=== PATIENT | male | born 1965 | race Asian ===

== ENCOUNTER 2017-08-14 09:13 | Inpatient (IN) | payer BC, OTHER ==
[2017-08-14] MEDS ORDERED: Nitroglycerin 0.4 MG TAB (25 Tab Bottle) ONE (09:43)
[2017-08-14] MEDS ORDERED: Lidocaine 1% (PF) 30 ML VIAL ONE (09:49)
[2017-08-14 09:50] LABS: #Basophils 0.1 thou/uL (0.0-0.2); #Eosinphils 0.1 thou/uL (0.0-0.7); #Lymphocytes 2.5 thou/uL (1.20-3.40); #Monocytes 1.2 thou/uL (0.11-0.59); #Neutrophils 6.9 thou/uL (1.40-6.50); %Basophils 0.8 % (0.0-1.0); %Lymphocytes 23.3 % (21.0-51.0); %Monocytes 11.3 % (0.0-10.0); %Neutrophils 63.6 % (42.0-75.0); Hemoglobin 14.5 g/dL (14.0-18.0); Mean Corpuscular Hemoglobin 28.5 pg (27.0-31.0); Mean Corpuscular Volume 86.2 fL (78.0-98.0); Mean Platelet Volume 7.5 fL (7.4-10.4); Platelet Count 324 thou/uL (130-400); RBC Distribution Width 13.7 % (11.5-14.5); White Blood Cell (WBC) Count 10.9 thou/uL (4.8-10.8)
[2017-08-14] MEDS ORDERED: Heparin 5,000 UNITS/ML VIAL ONE (09:50)
[2017-08-14] MEDS ORDERED: Midazolam HCl 2 mg/2 ml Vial ONE (10:03)
--- NOTE | 2017-08-14 10:07 | RAD ---
PORTABLE CHEST 1 VIEW: Date: 08/14/17 Time: 0947 hours HISTORY: Chest pain. FINDINGS/IMPRESSION: The heart size is borderline. No focal areas of consolidation, pneumothorax, vikki pulmonary edema, o r pleural effusions are seen. POS: [facility]
[2017-08-14 10:09] LABS: CKMB 1.1 ng/mL (0-6.6); Troponin I Less than 0.010 ng/mL (< 0.028)
[2017-08-14 10:12] LABS: ALT (SGPT) 30 U/L (8-55); AST (SGOT) 25 U/L (5-34); Albumin 3.9 g/dL (3.5-5.0); Alkaline Phosphatase 123 U/L (40-150); Anion Gap 14 mmol/L (10-20); BUN (Urea Nitrogen) 11 mg/dL (8.4-25.7); Bilirubin, Total 0.6 mg/dL (0.2-1.2); Calc. Creatinine Clearance 0 mL/min (70-130); Calcium 9.8 mg/dL (7.8-10.44); Carbon Dioxide 27 mmol/L (22-29); Chloride 102 mmol/L (98-107); Estimated GFR-MDRD Greater than 90; Globulin 4.2 g/dL (2.4-3.5); Glucose 181 mg/dL (70-105); Potassium 3.6 mmol/L (3.5-5.1); Protein, Total 8.1 g/dL (6.0-8.3); Sodium 139 mmol/L (136-145)
[2017-08-14] MEDS ORDERED: Heparin 10,000 UNITS/1 ML VIAL ONE (10:16)
[2017-08-14] MEDS ORDERED: Nitroglycerin 100MG/250ML BOT 250 ML ONE (10:18)
[2017-08-14 10:23] LABS: CK (CPK) 45 U/L (30-200)
[2017-08-14] MEDS ORDERED: Fentanyl 100 MCG/2 ML VIAL ONE (10:50)
[2017-08-14 10:57] LABS: Prothrombin Time 13.1 SEC (12.0-14.7)
[2017-08-14 10:58] LABS: PTT 28.6 SEC (22.9-36.1)
[2017-08-14] MEDS ORDERED: Aggrastat 12.5 MG/250 ML 250 ML ONE (11:12)
[2017-08-14] MEDS ORDERED: Sodium Chloride 0.9% 1,000 ML IV SCH (12:07)
[2017-08-14] MEDS ORDERED: Aggrastat 12.5 MG/250 ML 12.5 MG in Premix Bag 1 BAG IVPB SCH (12:07)
[2017-08-14] MEDS ORDERED: TICAGRELOR 90 MG TABLET PO SCH (12:15)
[2017-08-14] MEDS ORDERED: Iopamidol 370 76% 50 ML VIAL FS ONE (12:16)
[2017-08-14] MEDS ORDERED: Iopamidol 370 76% 100 ML VIAL ONE (12:16)
[2017-08-14] MEDS ORDERED: Milk Of Magnesia 30 ML UDCUP PO PRN (12:53)
[2017-08-14] MEDS ORDERED: Mag-Al 1200 mg/1200 mg/30 ML UDCUP PO PRN (12:53)
[2017-08-14] MEDS ORDERED: Ondansetron HCl/PF 4 MG/2 ML Vial IVP PRN (12:53)
[2017-08-14] MEDS ORDERED: Dextrose 5% in Water 1,000 ML IV PRN (12:53)
[2017-08-14] MEDS ORDERED: Dextrose 50% Abboject 50 ML SYRINGE SLOW IVP PRN (12:53)
[2017-08-14] MEDS ORDERED: Loperamide HCl 2 MG CAP PO PRN (12:53)
[2017-08-14] MEDS ORDERED: Zolpidem Tartrate 5 MG TAB PO PRN (12:53)
[2017-08-14] MEDS ORDERED: Ondansetron ODT 4 MG TAB PO PRN (12:53)
[2017-08-14] MEDS ORDERED: Senokot 8.6 MG TAB PO PRN (12:53)
[2017-08-14] MEDS ORDERED: Acetaminophen 325 MG TAB PO PRN (12:53)
[2017-08-14] MEDS ORDERED: HYDROcodone/Acetaminophen 5/325 mg Tablet PO PRN (12:53)
--- NOTE | 2017-08-14 14:18 | CON ---
DATE OF CONSULTATION: 08/14/2017 PRIMARY CARE PHYSICIAN: [facility] call admission. PRIMARY ATTENDING: Dr. Paz. REASON FOR ADMISSION: STEMI. REASON FOR CONSULT: Medical comanagement. HISTORY OF PRESENT ILLNESS: A 51-year-old [place] male who has underlying history of diabetes type 2, obesity, tobacco chewing, hypertension and dyslipidemia, who came to emergency room with complaint of chest pain. Patient reports that this morning when he woke up, at that time he was feeling normal. 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 At that time, he started feeling weakness in his arm and he was feeling funny with uncomfortable sensation in his chest. Around 7:30 a.m., he was feeling diaphoresis and he got his entire body weak and immediately after that his chest pain started, which was left-sided in nature, radiating to back, associated with diaphoresis, without any nausea or vomiting. He denies any dizziness, palpitation or syncope. The patient initially felt that his blood sugar may be low and that is why he ate chocolate and orange juice that did not improve his symptoms. He had persistent pain. He has to stop working and he took baby aspirin and subsequently he decided to drove to ER. Whenever he was walking towards the ER , he was having increasing chest pain. In the emergency room, he had first EKG which was suspicious, but second EKG showing ST elevation and that is why STEMI alert was done and patient was taken to cardiac catheterization. Cardiac catheterization showed diffuse LAD occlusion and patient had a drug- eluting stent in proximal LAD as well as mid LAD. He had 3-vessel disease. He was also found with 80% stenosis in LCX and 90% stenosis in the RCA. After successful 14 drug-eluting stents in the proximal and mid LAD, patient was transferred to CCU and he was getting Aggrastat drip. Patient's pain subsided in the emergency room with nitroglycerin sublingual. His EF found to be 25% after cardiac catheterization. Initially routine blood tests including CBC, CMP and cardiac enzymes were negative. In CCU, he still has seat in place. He is chest pain free and his vitals are stable. REVIEW OF SYSTEMS: The following complete review of systems was negative, unless otherwise mentioned in the HPI or below: Constitutional: Weight loss or gain, ability to conduct usual activities. Skin: Rash, itching. Eyes: Double vision, pain. ENT/Mouth: Nose bleeding, neck stiffness, pain, tenderness. Cardiovascular: Palpitations, dyspnea on exertion, orthopnea. Respiratory: Shortness of breath, wheezing, cough, hemoptysis, fever or night sweats. Gastrointestinal: Poor appetite, abdominal pain, heartburn, nausea, vomiting, constipation, or diarrhea. Genitourinary: Urgency, frequency, dysuria, nocturia. Musculoskeletal: Pain, swelling. Neurologic/Psychiatric: Anxiety, depression. Allergy/Immunologic: Skin rash, bleeding tendency. Please see my HPI for pertinent positive and negative. All other review of systems reviewed and negative except as mentioned in the HPI. PAST MEDICAL HISTORY: Diabetes type 2, poorly controlled on insulin; hypertension on lisinopril; dyslipidemia on lovastatin; and morbid obesity. PAST SURGICAL HISTORY: Reviewed and negative. Status post cardiac catheterization today with stent placement. PAST PSYCHIATRIC HISTORY: Reviewed and negative. SOCIAL HISTORY: Patient is working in convenience store. He is . He lives at home with his family. He chews tobacco. He denies any alcohol abuse. He denies any smoking. FAMILY HISTORY: Significantly positive for coronary artery disease to his brother who had CAD as well as CABG and cardiomyopathy. His brother also has diabetes. EMERGENCY ROOM COURSE: Patient has received heparin 3000 units, aspirin 162 mg , IV fluid, nitroglycerin 0.4 mg sublingual. ALLERGIES: No known drug allergy. CURRENT HOME MEDICATIONS: Aspirin 81 mg p.o. daily, lovastatin 20 mg p.o. at bedtime, Amaryl 4 mg twice daily, Lantus 60 units subcutaneously daily, lisinopril 5 mg p.o. daily, metoprolol 25 mg twice daily. Terazosin daily PHYSICAL EXAMINATION: VITAL SIGNS: On arrival, blood pressure 137/93, pulse 96, respiratory rate 22, temperature 97.5, saturation 100% on room air, weight 89.1 kilograms. GENERAL: Patient is currently alert, awake, no obvious acute distress. HEAD: Normocephalic, atraumatic. EYES: Pupils round, reactive to light. Extraocular muscle intact. ENT: Oropharynx within normal limits. Moist mucous membranes, no oral lesion, no pharyngeal erythema, no exudate. NECK: Supple, no JVD, no thyromegaly, no carotid bruit. LUNGS: Clear to auscultation without any rhonchi or rales. CARDIAC: S1 and S2 regular. No murmur, no gallop, no rub. ABDOMEN: Soft, obesity present. Bowel sounds present, nontender, nondistended. No organomegaly, no mass, no suprapubic tenderness. BACK: Examination unremarkable, no CVA tenderness. EXTREMITIES: Upper extremity passive movement of all joints are normal. Lower extremities, no edema. Good peripheral pulsation, no calf tenderness. SKIN: No skin rash. HEMATOLOGICAL SYSTEM: No lymphadenopathy. PSYCHIATRIC: Normal affect. NEUROLOGIC: Nonfocal examination. IMAGING DATA AND SIGNIFICANT LABORATORY DATA: EKG showing acute anterior wall myocardial infarction. Chest x-ray based on my review, no acute cardiopulmonary process. CBC: WBC 10.9, hemoglobin 14.5, platelet 324. INR 1.0. BMP; sodium 139, potassium 3.6, chloride 102, carbon dioxide 27, anion gap 14, BUN 11, creatinine 0.84, glucose 181, calcium 9.8. LFT: AST 25, ALT 30 , alkaline phosphatase is 123, albumin 3.9, CK-MB 1.1, troponin I less than 0.010, CK 45. ASSESSMENT AND PLAN/IMPRESSION: 1. Acute anterior wall myocardial infarction, status post cardiac catheterization with successful stenting with drug-eluting stent in proximal LAD as well as mid LAD. 2. Three-vessel coronary artery disease. Patient has diffuse LAD disease as well as 80% stenosis in left circumflex as well as proximal RCA 90% stenosis. Patient will require future stenting versus cardiac bypass grafting managed by Cardiology. 3. Ischemic cardiomyopathy with EF of 25%. We will need a repeat echocardiography before discharge. Expecting improvement in EF after revascularization. If EF does not improve, then he will need LifeVest therapy. Patient is already started on Coreg 3.125 mg twice daily, lisinopril 2.5 mg p.o. daily and we will continue to modify and the titrate medication. 4. Hypertension. As mentioned above, patient is on Coreg and lisinopril. 5. Dyslipidemia. We will check lipid profile tomorrow and continue Lipitor 40 mg p.o. at bedtime. 6. Morbid obesity. Dietary education given, weight loss education given. Healthy lifestyle measures discussed with the patient. 7. Tobacco chewing. Counseling given to avoid tobacco products. 8. Drug-eluting stent placed after cardiac catheterization. Patient will continue aspirin and Brilinta. Currently, patient is on Aggrastat after procedure. 9. Deep venous thrombosis prophylaxis. The patient is on Aggrastat drip right now and patient is started on Brilinta therapy. 10. Gastrointestinal prophylaxis, Pepcid 20 mg p.o. b.i.d. 11. Code status: The patient is FULL CODE. The patient's is surrogate decision maker. 12. BPH. continue terazosin Disposition plan based on clinical course. We are expecting patient's stay in hospital more than 2 midnights. Plan of care discussed with the patient as well as other family member. HAYLEY
--- NOTE | 2017-08-14 15:41 | HP ---
DATE OF ADMISSION: 08/14/2017 REASON FOR ADMISSION: Acute myocardial infarction. HISTORY OF PRESENT ILLNESS: Mr. Stockton is a 51-year-old gentleman. He started having chest pain at abo ut 7:30 this morning at [facility], called his [id number] who is a Hospitalist here and h e recommended he come to the hospital where he was found to have an acute myocardial infarction. The patient's pain actually resolved while he is in the emergency room after some nitrates, but the ST s egments remained elevated. PAST HISTORY: Type 2 diabetes, insulin-dependent. MEDICATION: Lantus insulin, he was given aspirin here. REVIEW OF SYSTEMS: Constitutional: No significant weight gain or loss. Vision: No changes. Heari ng: No changes. Pulmonary: No cough or wheezing. Gastrointestinal: No nausea, vomiting, diarrhea . Skin: No rashes. Neurologic: No unilateral weakness or numbness. Psychiatric: No unusual depr ession or anxiety. Hematologic: No unusual bruising. Genitourinary: No burning with urination. SOCIAL HISTORY: Chews tobacco. Does not smoke. FAMILY HISTORY: Unknown at this time, the patient was having acute CO, was taken directly to the [facility] catheterization lab. PHYSICAL EXAMINATION: GENERAL: This is a pleasant gentleman, somewhat apprehensive but not in any distress. VITAL SIGNS: Blood pressure was 120/70, pulse in the 70-80 range, sinus on the monitor. HEENT: Sclerae nonicteric. Mouth, mucous membranes moist. NECK: Supple, no lymphadenopathy. LUNGS: Clear, no wheezing, rales or rhonchi. CARDIAC: Normal S1, normal S2. There is no murmur, rub or gallop. ABDOMEN: Soft, nontender, no hepatomegaly. EXTREMITIES: Warm, dry, no clubbing, cyanosis or edema. Pedal pulse on the right side was strong. LABORATORY DATA: Hemoglobin is 14.5, WBC 10.9, INR is 1. ACT after a dose of heparin in the emergen cy room was 168. The EKG did reveal ST elevation in the anterior leads. ASSESSMENT: 1. Acute myocardial infarction. 2. Diabetes mellitus type 2, insulin-dependent. PLAN: Proceed to cardiac catheterization lab. Discussed risks of stroke, heart attack, iodine aller gy, loss of blood supply to the leg or kidney, stent thrombosis, stent restenosis all discussed. The patient understood and wished to proceed. This was done successfully as is outlined in the chart. The patient was found to have severe 3-vessel coronary disease. The infarct related vessel of a prox imal LAD with a long diseased segment.
[2017-08-14 15:55] LABS: #Basophils 0.1 thou/uL (0.0-0.2); #Eosinphils 0.1 thou/uL (0.0-0.7); #Lymphocytes 2.1 thou/uL (1.20-3.40); #Monocytes 0.8 thou/uL (0.11-0.59); %Basophils 0.7 % (0.0-1.0); %Eosinophils 0.5 % (0.0-10.0); %Lymphocytes 20.8 % (21.0-51.0); %Monocytes 8.1 % (0.0-10.0); Hemoglobin 12.9 g/dL (14.0-18.0); Mean Corpuscular HGB CONC 33.9 g/dL (32.0-36.0); Mean Corpuscular Hemoglobin 28.8 pg (27.0-31.0); Mean Platelet Volume 7.4 fL (7.4-10.4); Platelet Count 295 thou/uL (130-400); RBC Distribution Width 13.6 % (11.5-14.5); Red Blood Cell (RBC) Count 4.48 mill/uL (4.70-6.10)
[2017-08-14 16:41] LABS: CKMB 275.8 ng/mL (0-6.6); Troponin I 169.638 ng/mL (< 0.028)
[2017-08-14] MEDS: HumaLOG 300 UNITS/3 ML VIAL SC PRN (18:23)
[2017-08-14 19:13] LABS: CKMB 185.1 ng/mL (0-6.6); Critical Call CKMBM RESULT DECREASING; Critical Call Chem Troponin I RESULT DECREASING; Troponin I 130.665 ng/mL (< 0.028)
[2017-08-14] MEDS: TICAGRELOR 90 MG TABLET PO SCH (20:48)
[2017-08-14] MEDS: Famotidine 20 MG TAB PO SCH (20:48)
[2017-08-14] MEDS: Atorvastatin Calcium 40 MG TAB PO SCH (20:48)
[2017-08-14] MEDS: Insulin Regular 300 UNITS/3 ML VIAL SC PRN (20:58)
[2017-08-14] MEDS ORDERED: Carvedilol 3.125 MG TAB PO SCH (21:00)
[2017-08-14] MEDS ORDERED: Lisinopril 2.5 MG TAB PO SCH (21:00)
[2017-08-14] MEDS ORDERED: Carvedilol 6.25 MG TAB PO SCH (21:00)
[2017-08-14 23:14] LABS: #Basophils 0.1 thou/uL (0.0-0.2); #Eosinphils 0.2 thou/uL (0.0-0.7); #Lymphocytes 2.5 thou/uL (1.20-3.40); #Monocytes 0.9 thou/uL (0.11-0.59); #Neutrophils 7.2 thou/uL (1.40-6.50); %Basophils 0.6 % (0.0-1.0); %Eosinophils 1.8 % (0.0-10.0); %Monocytes 8.6 % (0.0-10.0); Mean Corpuscular HGB CONC 33.3 g/dL (32.0-36.0); Mean Corpuscular Hemoglobin 28.4 pg (27.0-31.0); Mean Corpuscular Volume 85.3 fL (78.0-98.0); Mean Platelet Volume 7.3 fL (7.4-10.4); Platelet Count 311 thou/uL (130-400); RBC Distribution Width 13.7 % (11.5-14.5); Red Blood Cell (RBC) Count 4.92 mill/uL (4.70-6.10); White Blood Cell (WBC) Count 10.9 thou/uL (4.8-10.8)
[2017-08-14 23:59] LABS: Troponin I 77.113 ng/mL (< 0.028)
[2017-08-15 05:18] LABS: #Eosinphils 0.2 thou/uL (0.0-0.7); #Lymphocytes 1.8 thou/uL (1.20-3.40); #Monocytes 0.9 thou/uL (0.11-0.59); #Neutrophils 7.3 thou/uL (1.40-6.50); %Basophils 0.5 % (0.0-1.0); %Eosinophils 1.7 % (0.0-10.0); %Lymphocytes 17.8 % (21.0-51.0); %Monocytes 8.8 % (0.0-10.0); %Neutrophils 71.3 % (42.0-75.0); Hemoglobin 13.8 g/dL (14.0-18.0); Mean Corpuscular HGB CONC 32.6 g/dL (32.0-36.0); Mean Corpuscular Hemoglobin 28.3 pg (27.0-31.0); Mean Corpuscular Volume 86.6 fL (78.0-98.0); Mean Platelet Volume 7.9 fL (7.4-10.4); Platelet Count 280 thou/uL (130-400); RBC Distribution Width 13.7 % (11.5-14.5); Red Blood Cell (RBC) Count 4.89 mill/uL (4.70-6.10); White Blood Cell (WBC) Count 10.2 thou/uL (4.8-10.8)
[2017-08-15] MEDS: HumaLOG 300 UNITS/3 ML VIAL SC PRN (06:12)
[2017-08-15 06:21] LABS: ALT (SGPT) 51 U/L (8-55); AST (SGOT) 192 U/L (5-34); Albumin 3.5 g/dL (3.5-5.0); Alkaline Phosphatase 90 U/L (40-150); Anion Gap 12 mmol/L (10-20); BUN (Urea Nitrogen) 8 mg/dL (8.4-25.7); Bilirubin, Total 1.1 mg/dL (0.2-1.2); Calc. Creatinine Clearance 0 mL/min (70-130); Calcium 9.2 mg/dL (7.8-10.44); Carbon Dioxide 22 mmol/L (22-29); Cardiac Risk 4.7 (Less than 4.5); Chloride 105 mmol/L (98-107); Cholesterol 196 mg/dl (< 200 Desired); Estimated GFR-MDRD Greater than 90; Globulin 3.5 g/dL (2.4-3.5); Glucose 246 mg/dL (70-105); HDL Cholesterol 42 mg/dL (>60 Neg Risk); LDL Cholesterol, Calculated 121 mg/dL; Sodium 135 mmol/L (136-145); Triglycerides 165 mg/dL (Less than 150)
[2017-08-15 06:43] LABS: Hemoglobin A1c 12.9 % (4.0-6.0)
--- NOTE | 2017-08-15 08:04 | PRG ---
DATE OF SERVICE: 08/15/2017 HISTORY: Mr. Stockton is doing better today. He has no chest pain or pressure. He is tolerating the Cor eg well. PHYSICAL EXAMINATION: VITAL SIGNS: Blood pressure 130 systolic. Pulse is 80s. LUNGS: Clear. CARDIAC: Normal S1 and S2. ABDOMEN: Soft, nontender. EXTREMITIES: No edema. PERTINENT LABORATORY: His cholesterol this morning; LDL was 121, that is after the IN yesterday and after a dose of statins. His peak troponin level was 169. EKG reveals anterior infarct with Q-waves in anterior leads. ASSESSMENT: 1. Three-vessel coronary artery disease. 2. Diabetes. 3. Hypercholesterolemia. 4. Tobacco use/dependence. PLAN: 1. Increase carvedilol. 2. DARVIN inhibitors. 3. Statins. 4. Aspirin. 5. Ticagrelor. 6. Okay to transfer to floor. 7. I will recommend LifeVest prior to discharge. 8. Likely will ultimately need bypass surgery, I think that he needs to have recovery of the anterio r wall or at least some recovery from the infarction prior to surgery. The other option would be aden nt implantation of the right coronary, followed by medical therapy. We will discuss this as the germán ent ambulates and adjust according to his clinical course. I will be out the next few days. Dr. Mary Grace amor will be seeing this weekend.
[2017-08-15] MEDS: Multivitamin W/ Minerals 1 TAB PO SCH (08:58)
[2017-08-15] MEDS: Famotidine 20 MG TAB PO SCH ×2 (08:58→21:40)
[2017-08-15] MEDS: Lisinopril 5 MG TAB PO SCH ×2 (08:58→21:40)
[2017-08-15] MEDS ORDERED: Lisinopril 2.5 MG TAB PO SCH (09:00)
[2017-08-15] MEDS: TICAGRELOR 90 MG TABLET PO SCH ×2 (09:30→21:42)
[2017-08-15] MEDS: Glimepiride 4 MG TAB PO SCH ×2 (11:49→16:45)
[2017-08-15] MEDS: Insulin Glargine 60 UNITS in Pre-Filled Syringe 1 EACH SC SCH (11:50)
[2017-08-15] MEDS: Insulin Regular 300 UNITS/3 ML VIAL SC PRN (11:51)
--- NOTE | 2017-08-15 12:00 | PDOC.PN ---
- Subjective Encounter Start Date: 08/15/17 Encounter Start Time: 10:00 -: old records requested/rev Patient seen and examined for medical problem, no chest pain, no dyspnea. No new complaints. No overnight events - Objective Resuscitation Status: Resuscitation Status FULL:Full Resuscitation MAR Reviewed: Yes Vital Signs & Weight: Vital Signs (12 hours) Temp Pulse Resp Pulse Ox 08/15/17 09:00 98.3 F 08/15/17 08:58 86 08/15/17 07:47 98.6 F 86 20 97 08/15/17 04:00 98.6 F 08/15/17 00:00 98.9 F Most Recent Monitor Data Heart Rate from ECG 88 NIBP 124/76 NIBP BP-Mean 93 Respiration from ECG 21 SpO2 96 I&O: 08/14/17 08/15/17 08/16/17 06:59 06:59 06:59 Intake Total 1516 360 Output Total 1395 0 Balance 121 360 Result Diagrams: 08/15/17 04:32 08/15/17 04:32 Additional Labs: Accuchecks 08/15/17 08/15/17 08/14/17 11:39 06:13 20:57 POC Glucose 246 H 271 H 249 H 08/14/17 17:45 POC Glucose 195 H EKG Reviewed by me: Yes (nsr, ocasional pvc) Phys Exam - Physical Examination Constitutional: NAD HEENT: PERRLA, moist MMs, sclera anicteric Neck: no JVD, supple Respiratory: no wheezing, no rales, no rhonchi Cardiovascular: RRR, no significant murmur, no rub Gastrointestinal: soft, non-tender, no distention, positive bowel sounds obesity+ Musculoskeletal: no edema, pulses present Neurological: non-focal, normal sensation, moves all 4 limbs Psychiatric: normal affect, A&O x 3 Skin: no rash, normal turgor Dx/Plan (1) Acute myocardial infarction Code(s): I21.9 - ACUTE MYOCARDIAL INFARCTION, UNSPECIFIED Status: Acute (2) Status post insertion of drug-eluting stent into left anterior descending ( LAD) artery Code(s): Z95.5 - PRESENCE OF CORONARY ANGIOPLASTY IMPLANT AND GRAFT Status: Acute (3) 3-vessel coronary artery disease Status: Acute (4) BPH (benign prostatic hyperplasia) Code(s): N40.0 - BENIGN PROSTATIC HYPERPLASIA WITHOUT LOWER URINRY TRACT SYMP Status: Chronic (5) Diabetes type 2, controlled Code(s): E11.9 - TYPE 2 DIABETES MELLITUS WITHOUT COMPLICATIONS Status: Chronic (6) Dyslipidemia Code(s): E78.5 - HYPERLIPIDEMIA, UNSPECIFIED Status: Chronic (7) Hypertension Code(s): I10 - ESSENTIAL (PRIMARY) HYPERTENSION Status: Chronic (8) Obesity Code(s): E66.9 - OBESITY, UNSPECIFIED Status: Chronic - Plan cont current plan of care, plan discussed w/ family * will start his home medication for diabetes * today will monitor blood sugar and adjust insulin dose * transfer to tele * cardiac rehab * counselled to avoid chewing tobacco * will adjust dose of coreg and lisnopril * echo pedning result * medication reviewed as below * symptomatic treatment * discussed with family * may need life vest before discharge and may need future CABG. Review of Systems - Review of Systems Eyes: negative: Pain, Vision Change, Conjunctivae Inflammation, Eyelid Inflammation, Redness, Other ENT: negative: Ear Pain, Ear Discharge, Nose Pain, Nose Discharge, Nose Congestion, Mouth Pain, Mouth Swelling, Throat Pain, Throat Swelling, Other Respiratory: negative: Cough, Dry, Shortness of Breath, Hemoptysis, SOB with Excertion, Pleuritic Pain, Sputum, Wheezing Cardiovascular: negative: chest pain, palpitations, orthopnea, paroxysmal nocturnal dyspnea, edema, light headedness, other Gastrointestinal: negative: Nausea, Vomiting, Abdominal Pain, Diarrhea, Constipation, Melena, Hematochezia, Other Genitourinary: negative: Dysuria, Frequency, Incontinence, Hematuria, Retention , Other Musculoskeletal: negative: Neck Pain, Shoulder Pain, Arm Pain, Back Pain, Hand Pain, Leg Pain, Foot Pain, Other Skin: negative: Rash, Lesions, Butch, Bruising, Other - Medications/Allergies Allergies/Adverse Reactions: Allergies Allergy/AdvReac Type Severity Reaction Status Date / Time No Known Drug Allergies Allergy Verified 08/14/17 18:57 Medications: Current Medications Acetaminophen (Tylenol) 650 mg PO Q4H PRN PRN Reason: Headache/Fever or Pain Hydrocodone Bitart/Acetaminophen (Cameron 5/325) 1 tab PO Q4H PRN PRN Reason: Moderate Pain (4-6) Last Admin: 08/14/17 16:20 Dose: 1 tab Al Hydroxide/Mg Hydroxide (Maalox) 30 ml PO Q6H PRN PRN Reason: Heartburn or Indigestion Aspirin (Aspirin Chewable) 81 mg PO DAILY [facility] Last Admin: 08/15/17 08:56 Dose: 81 mg Atorvastatin Calcium (Lipitor) 40 mg PO HS [facility] Last Admin: 08/14/17 20:48 Dose: 40 mg Carvedilol (Coreg) 12.5 mg PO BID [facility] Dextrose/Water (Dextrose 50%) 25 gm SLOW IVP PRN PRN PRN Reason: Hypoglycemia Famotidine (Pepcid) 20 mg PO BID [facility] Last Admin: 08/15/17 08:58 Dose: 20 mg Glimepiride (Amaryl) 4 mg PO BID-AC [facility] Last Admin: 08/15/17 11:49 Dose: Not Given Glucagon (Glucagon) 1 mg IM PRN PRN PRN Reason: Hypoglycemia Dextrose/Water (D5w) 1,000 mls @ 0 mls/hr IV .Q0M PRN; As Directed PRN Reason: Hypoglycemia Insulin Glargine 60 units/ (Miscellaneous Medication) 0.6 mls @ 0 mls/hr SC QAM [facility] Last Admin: 08/15/17 11:50 Dose: 0.6 mls Insulin Human Lispro (Humalog) 0 units SC .MODERATE SLIDING SC PRN PRN Reason: Moderate Correctional Scale Last Admin: 08/15/17 06:12 Dose: 6 unit Insulin Human Regular (Humulin R) 0 units SC .BEDTIME SLIDING SC PRN PRN Reason: Bedtime Correctional Scale Last Admin: 08/15/17 11:51 Dose: 2 unit Iron/Minerals/Multivitamins (Theragran M) 1 tab PO DAILY [facility] Last Admin: 08/15/17 08:58 Dose: 1 tab Lisinopril (Zestril) 2.5 mg PO BID [facility] Last Admin: 08/15/17 08:58 Dose: 2.5 mg Loperamide HCl (Imodium) 2 mg PO PRN PRN PRN Reason: Diarrhea/Loose Stools Magnesium Hydroxide (Milk Of Magnesium) 30 ml PO DAILYPRN PRN PRN Reason: Constipation Ondansetron HCl (Zofran Odt) 4 mg PO Q6H PRN PRN Reason: Nausea/Vomiting Ondansetron HCl (Zofran) 4 mg IVP Q6H PRN PRN Reason: Nausea/Vomiting Senna (Senokot) 2 tab PO HSPRN PRN PRN Reason: Constipation Ticagrelor (Brilinta) 90 mg PO BID [facility] Last Admin: 08/15/17 09:30 Dose: 90 mg Zolpidem Tartrate (Ambien) 5 mg PO HSPRN PRN PRN Reason: Insomnia
[2017-08-15 19:23] LABS: Bilirubin Negative (Negative); Blood, Urine Negative (Negative); Clarity CLEAR (Clear); Glucose, Urine (Dipstick) 100 mg/dL (Negative); Leukocyte Negative (Negative); Nitrite Negative (Negative); Protein, Urine (Dipstick) Negative (Neg-Trace); Specific Gravity, Urine 1.008 (1.002-1.036); Urobilinogen 0.2 mg/dL (0.2-1.0); pH, Urine 7.5 (5.0-9.0)
[2017-08-15 19:28] LABS: Bacteria/HPF None Seen HPF (None Seen); Hyaline Casts/LPF 0-3 HYALINE CAST LPF (0-3 Hyaline); RBC/HPF None Seen HPF (0-3); Squamous Epithelial None Seen HPF (0-3); WBC/HPF None Seen HPF (0-3)
[2017-08-15] MEDS: Atorvastatin Calcium 40 MG TAB PO SCH (21:40)
[2017-08-15] MEDS: Carvedilol 6.25 MG TAB PO SCH (21:41)
[2017-08-16 02:22] VITALS: BMI 32.0
--- NOTE | 2017-08-16 07:05 | PDOC.CTH ---
Cardiology Progress Note - Subjective Pt doing well. No issues. Ambulating without complications - Objective Vital Signs Temp Pulse Resp BP BP Pulse Ox 08/16/17 03:30 98 F 86 18 97/54 L 98 08/16/17 00:00 98.4 F 91 18 110/67 96 08/15/17 21:41 138/84 08/15/17 21:40 96 138/84 08/15/17 20:16 98.2 F 96 18 138/84 95 08/15/17 19:57 98.3 F 92 20 99 Weight 198 lb 1.6 oz 08/15/17 08/16/17 08/17/17 06:59 06:59 06:59 Intake Total 1516 1500 Output Total 1395 1350 Balance 121 150 - Physical Examination General/Neuro: alert & oriented x3, NAD Neck: carotid US brisk, no JVD present Lungs: CTA Heart: PMI normal, RRR Abdomen: NT/ND, soft Extremities: + femoral B - Labs Result Diagrams: 08/15/17 04:32 08/15/17 04:32 Troponin/CKMB CK-MB (CK-2) 185.1 ng/mL (0-6.6) H* 08/14/17 18:20 Troponin I 77.113 ng/mL (< 0.028) H* 08/14/17 23:07 - Assessment/Plan 1. AMI (anterior wall) 2. Severe three vessel disease 3. Hyperlipidemia 4. DM ACEI, statin, BB Lifevest ordered Consider stent to RCA vs CABG as the anterior wall heals Stop all tobacco products
[2017-08-16] MEDS: Glimepiride 4 MG TAB PO SCH ×2 (07:55→16:55)
[2017-08-16] MEDS: Carvedilol 6.25 MG TAB PO SCH ×2 (09:27→21:16)
[2017-08-16] MEDS: Multivitamin W/ Minerals 1 TAB PO SCH (09:28)
[2017-08-16] MEDS: Lisinopril 5 MG TAB PO SCH ×2 (09:29→21:17)
[2017-08-16] MEDS: Famotidine 20 MG TAB PO SCH ×2 (09:30→21:17)
[2017-08-16] MEDS: TICAGRELOR 90 MG TABLET PO SCH ×2 (09:30→21:18)
[2017-08-16] MEDS: Insulin Glargine 60 UNITS in Pre-Filled Syringe 1 EACH SC SCH (09:36)
[2017-08-16] MEDS ORDERED: Nitroglycerin 50 MG/250 ML BOT 0 ML ONE (09:51)
--- NOTE | 2017-08-16 11:09 | PDOC.PN ---
- Subjective Encounter Start Date: 08/16/17 Encounter Start Time: 08:15 Patient seen and examined for medical problems. No new complaints. No overnight events - Objective Resuscitation Status: Resuscitation Status FULL:Full Resuscitation MAR Reviewed: Yes Vital Signs & Weight: Vital Signs (12 hours) Temp Pulse Resp BP Pulse Ox 08/16/17 09:29 86 08/16/17 08:00 97.1 F L 90 16 116/74 96 08/16/17 03:30 98 F 86 18 97/54 L 98 08/16/17 00:00 98.4 F 91 18 110/67 96 Weight Weight 198 lb 1.6 oz Most Recent Monitor Data Heart Rate from ECG 92 NIBP 101/66 NIBP BP-Mean 72 Respiration from ECG 23 SpO2 97 I&O: 08/15/17 08/16/17 08/17/17 06:59 06:59 06:59 Intake Total 1516 1500 Output Total 1395 1350 Balance 121 150 Result Diagrams: 08/15/17 04:32 08/15/17 04:32 Additional Labs: Accuchecks 08/16/17 08/15/17 08/15/17 06:02 20:55 17:13 POC Glucose 85 173 H 114 H 08/15/17 11:39 POC Glucose 246 H EKG Reviewed by me: Yes (nsr) Phys Exam - Physical Examination Constitutional: NAD HEENT: PERRLA, moist MMs, sclera anicteric Neck: no JVD, supple Respiratory: no wheezing, no rales, no rhonchi Cardiovascular: RRR, no significant murmur, no rub Gastrointestinal: soft, non-tender, no distention, positive bowel sounds Musculoskeletal: no edema, pulses present Neurological: non-focal, normal sensation, moves all 4 limbs Lymphatic: no nodes Psychiatric: normal affect, A&O x 3 Skin: no rash, normal turgor Dx/Plan (1) Acute myocardial infarction Code(s): I21.9 - ACUTE MYOCARDIAL INFARCTION, UNSPECIFIED Status: Acute (2) Status post insertion of drug-eluting stent into left anterior descending ( LAD) artery Code(s): Z95.5 - PRESENCE OF CORONARY ANGIOPLASTY IMPLANT AND GRAFT Status: Acute (3) 3-vessel coronary artery disease Status: Acute (4) BPH (benign prostatic hyperplasia) Code(s): N40.0 - BENIGN PROSTATIC HYPERPLASIA WITHOUT LOWER URINRY TRACT SYMP Status: Chronic (5) Diabetes type 2, controlled Code(s): E11.9 - TYPE 2 DIABETES MELLITUS WITHOUT COMPLICATIONS Status: Chronic (6) Dyslipidemia Code(s): E78.5 - HYPERLIPIDEMIA, UNSPECIFIED Status: Chronic (7) Hypertension Code(s): I10 - ESSENTIAL (PRIMARY) HYPERTENSION Status: Chronic (8) Obesity Code(s): E66.9 - OBESITY, UNSPECIFIED Status: Chronic Qualifiers: Obesity type: due to excess calories Body mass index: BMI 30.0-30.9 - Plan cont current plan of care, plan discussed w/ family * currently on optimum medical therapy after CO * medication reviewed as below * symptomatic treatment * today life vest will be arranged * today will do echo * discussed with cardiology and family * expecting discharge tomorrow. Review of Systems - Review of Systems Eyes: negative: Pain, Vision Change, Conjunctivae Inflammation, Eyelid Inflammation, Redness, Other ENT: negative: Ear Pain, Ear Discharge, Nose Pain, Nose Discharge, Nose Congestion, Mouth Pain, Mouth Swelling, Throat Pain, Throat Swelling, Other Respiratory: negative: Cough, Dry, Shortness of Breath, Hemoptysis, SOB with Excertion, Pleuritic Pain, Sputum, Wheezing Cardiovascular: negative: chest pain, palpitations, orthopnea, paroxysmal nocturnal dyspnea, edema, light headedness, other Gastrointestinal: negative: Nausea, Vomiting, Abdominal Pain, Diarrhea, Constipation, Melena, Hematochezia, Other Genitourinary: negative: Dysuria, Frequency, Incontinence, Hematuria, Retention , Other Musculoskeletal: negative: Neck Pain, Shoulder Pain, Arm Pain, Back Pain, Hand Pain, Leg Pain, Foot Pain, Other Skin: negative: Rash, Lesions, Butch, Bruising, Other - Medications/Allergies Allergies/Adverse Reactions: Allergies Allergy/AdvReac Type Severity Reaction Status Date / Time No Known Drug Allergies Allergy Verified 08/14/17 18:57 Medications: Current Medications Acetaminophen (Tylenol) 650 mg PO Q4H PRN PRN Reason: Headache/Fever or Pain Last Admin: 08/16/17 07:55 Dose: 650 mg Hydrocodone Bitart/Acetaminophen ([place] 5/325) 1 tab PO Q4H PRN PRN Reason: Moderate Pain (4-6) Last Admin: 08/14/17 16:20 Dose: 1 tab Al Hydroxide/Mg Hydroxide (Maalox) 30 ml PO Q6H PRN PRN Reason: Heartburn or Indigestion Aspirin (Aspirin Chewable) 81 mg PO DAILY [facility] Last Admin: 08/16/17 09:28 Dose: 81 mg Atorvastatin Calcium (Lipitor) 40 mg PO HS [facility] Last Admin: 08/15/17 21:40 Dose: 40 mg Carvedilol (Coreg) 12.5 mg PO BID [facility] Last Admin: 08/16/17 09:27 Dose: 12.5 mg Dextrose/Water (Dextrose 50%) 25 gm SLOW IVP PRN PRN PRN Reason: Hypoglycemia Famotidine (Pepcid) 20 mg PO BID [facility] Last Admin: 08/16/17 09:30 Dose: 20 mg Glimepiride (Amaryl) 4 mg PO BID-AC [facility] Last Admin: 08/16/17 07:55 Dose: 4 mg Glucagon (Glucagon) 1 mg IM PRN PRN PRN Reason: Hypoglycemia Dextrose/Water (D5w) 1,000 mls @ 0 mls/hr IV .Q0M PRN; As Directed PRN Reason: Hypoglycemia Insulin Glargine 60 units/ (Miscellaneous Medication) 0.6 mls @ 0 mls/hr SC QAM [facility] Last Admin: 08/16/17 09:36 Dose: 0.6 mls Insulin Human Lispro (Humalog) 0 units SC .MODERATE SLIDING SC PRN PRN Reason: Moderate Correctional Scale Last Admin: 08/15/17 06:12 Dose: 6 unit Insulin Human Regular (Humulin R) 0 units SC .BEDTIME SLIDING SC PRN PRN Reason: Bedtime Correctional Scale Last Admin: 08/15/17 11:51 Dose: 2 unit Iron/Minerals/Multivitamins (Theragran M) 1 tab PO DAILY [facility] Last Admin: 08/16/17 09:28 Dose: 1 tab Lisinopril (Zestril) 2.5 mg PO BID [facility] Last Admin: 08/16/17 09:29 Dose: 2.5 mg Loperamide HCl (Imodium) 2 mg PO PRN PRN PRN Reason: Diarrhea/Loose Stools Magnesium Hydroxide (Milk Of Magnesium) 30 ml PO DAILYPRN PRN PRN Reason: Constipation Ondansetron HCl (Zofran Odt) 4 mg PO Q6H PRN PRN Reason: Nausea/Vomiting Ondansetron HCl (Zofran) 4 mg IVP Q6H PRN PRN Reason: Nausea/Vomiting Senna (Senokot) 2 tab PO HSPRN PRN PRN Reason: Constipation Last Admin: 08/15/17 21:56 Dose: 2 tab Ticagrelor (Brilinta) 90 mg PO BID [facility] Last Admin: 08/16/17 09:30 Dose: 90 mg Zolpidem Tartrate (Ambien) 5 mg PO HSPRN PRN PRN Reason: Insomnia
[2017-08-16] MEDS: HumaLOG 300 UNITS/3 ML VIAL SC PRN ×2 (12:09→16:55)
[2017-08-16] MEDS: Atorvastatin Calcium 40 MG TAB PO SCH (21:16)
[2017-08-17] MEDS: Insulin Glargine 60 UNITS in Pre-Filled Syringe 1 EACH SC SCH (09:07)
[2017-08-17] MEDS: Famotidine 20 MG TAB PO SCH ×2 (09:08→20:55)
[2017-08-17] MEDS: Glimepiride 4 MG TAB PO SCH ×2 (09:08→17:36)
[2017-08-17] MEDS: TICAGRELOR 90 MG TABLET PO SCH ×2 (09:08→20:55)
[2017-08-17] MEDS: Carvedilol 6.25 MG TAB PO SCH ×2 (09:08→20:53)
[2017-08-17] MEDS: Multivitamin W/ Minerals 1 TAB PO SCH (09:08)
[2017-08-17] MEDS: Lisinopril 5 MG TAB PO SCH ×2 (09:09→20:54)
--- NOTE | 2017-08-17 11:04 | PDOC.CTH ---
Cardiology Progress Note - Subjective Doing well. Has no complaints. Denies any CP, SOB or GANN. - Objective Vital Signs Temp Pulse Resp BP BP BP Pulse Ox 08/17/17 09:09 85 08/17/17 09:08 105/71 08/17/17 07:55 98.7 F 85 16 105/71 98 08/17/17 04:31 99/62 08/17/17 03:30 98.4 F 84 14 98/60 94 L 08/16/17 23:38 98.1 F 87 17 108/71 96 Weight 198 lb 1.6 oz 08/16/17 08/17/17 08/18/17 06:59 06:59 06:59 Intake Total 1500 1200 Output Total 1350 605 Balance 150 595 - Physical Examination General/Neuro: alert & oriented x3 Neck: no JVD present Lungs: CTA Heart: RRR Abdomen: NT/ND Extremities: other: (no edema) - Telemetry Telemetry Rhythm: SR - Labs Result Diagrams: 08/15/17 04:32 08/15/17 04:32 Troponin/CKMB CK-MB (CK-2) 185.1 ng/mL (0-6.6) H* 08/14/17 18:20 Troponin I 77.113 ng/mL (< 0.028) H* 08/14/17 23:07 - Assessment/Plan 1. s/p anterior STEMI 2. 3VCAD s/p PCI to mid LAD 3. ICMO 4. Hyperlipidemia 5. DM Overall doing very well. EF still down at 30-35% on ECHO. Possible apical thrombus cannot be excluded. Add lovenox. Will need CECILE prior to d/c. Plan for Saturday.
--- NOTE | 2017-08-17 11:12 | PDOC.PN ---
- Subjective Encounter Start Date: 08/17/17 Encounter Start Time: 08:00 Patient seen and examined for medical problems. No new complaints. No overnight events - Objective Resuscitation Status: Resuscitation Status FULL:Full Resuscitation MAR Reviewed: Yes Vital Signs & Weight: Vital Signs (12 hours) Temp Pulse Resp BP BP BP Pulse Ox 08/17/17 09:09 85 08/17/17 09:08 105/71 08/17/17 07:55 98.7 F 85 16 105/71 98 08/17/17 04:31 99/62 08/17/17 03:30 98.4 F 84 14 98/60 94 L 08/16/17 23:38 98.1 F 87 17 108/71 96 Weight Weight 198 lb 1.6 oz Most Recent Monitor Data Heart Rate from ECG 92 NIBP 101/66 NIBP BP-Mean 72 Respiration from ECG 23 SpO2 97 I&O: 08/16/17 08/17/17 08/18/17 06:59 06:59 06:59 Intake Total 1500 1200 Output Total 1350 605 Balance 150 595 Result Diagrams: 08/15/17 04:32 08/15/17 04:32 Additional Labs: Accuchecks 08/17/17 08/16/17 08/16/17 05:52 20:53 16:38 POC Glucose 128 H 192 H 196 H 08/16/17 11:03 POC Glucose 160 H Radiology Reviewed by me: Yes (echo ef 30-35%, apical thrombus suspected) EKG Reviewed by me: Yes (nsr) Phys Exam - Physical Examination Constitutional: NAD HEENT: PERRLA, moist MMs, sclera anicteric Neck: no JVD, supple Respiratory: no wheezing, no rales, no rhonchi Cardiovascular: RRR, no significant murmur, no rub Gastrointestinal: soft, non-tender, no distention, positive bowel sounds obesity+ Musculoskeletal: no edema, pulses present Neurological: non-focal, normal sensation Lymphatic: no nodes Psychiatric: normal affect, A&O x 3 Skin: no rash, normal turgor Dx/Plan (1) Acute myocardial infarction Code(s): I21.9 - ACUTE MYOCARDIAL INFARCTION, UNSPECIFIED Status: Acute (2) Status post insertion of drug-eluting stent into left anterior descending ( LAD) artery Code(s): Z95.5 - PRESENCE OF CORONARY ANGIOPLASTY IMPLANT AND GRAFT Status: Acute (3) 3-vessel coronary artery disease Status: Acute (4) Diabetes type 2, controlled Code(s): E11.9 - TYPE 2 DIABETES MELLITUS WITHOUT COMPLICATIONS Status: Chronic (5) Dyslipidemia Code(s): E78.5 - HYPERLIPIDEMIA, UNSPECIFIED Status: Chronic (6) Hypertension Code(s): I10 - ESSENTIAL (PRIMARY) HYPERTENSION Status: Chronic (7) Obesity Code(s): E66.9 - OBESITY, UNSPECIFIED Status: Chronic Qualifiers: Obesity type: due to excess calories Body mass index: BMI 30.0-30.9 - Plan cont current plan of care, plan discussed w/ family * today plan for CECILE for suspected apical thrombus * medication reviewed as below * symptomatic treatment * currently on optimum medical therapy. Review of Systems - Review of Systems Eyes: negative: Pain, Vision Change, Conjunctivae Inflammation, Eyelid Inflammation, Redness, Other ENT: negative: Ear Pain, Ear Discharge, Nose Pain, Nose Discharge, Nose Congestion, Mouth Pain, Mouth Swelling, Throat Pain, Throat Swelling, Other Respiratory: negative: Cough, Dry, Shortness of Breath, Hemoptysis, SOB with Excertion, Pleuritic Pain, Sputum, Wheezing Cardiovascular: negative: chest pain, palpitations, orthopnea, paroxysmal nocturnal dyspnea, edema, light headedness, other Gastrointestinal: negative: Nausea, Vomiting, Abdominal Pain, Diarrhea, Constipation, Melena, Hematochezia, Other Genitourinary: negative: Dysuria, Frequency, Incontinence, Hematuria, Retention , Other Musculoskeletal: negative: Neck Pain, Shoulder Pain, Arm Pain, Back Pain, Hand Pain, Leg Pain, Foot Pain, Other Skin: negative: Rash, Lesions, Butch, Bruising, Other - Medications/Allergies Allergies/Adverse Reactions: Allergies Allergy/AdvReac Type Severity Reaction Status Date / Time No Known Drug Allergies Allergy Verified 08/14/17 18:57 Medications: Current Medications Acetaminophen (Tylenol) 650 mg PO Q4H PRN PRN Reason: Headache/Fever or Pain Last Admin: 08/16/17 07:55 Dose: 650 mg Hydrocodone Bitart/Acetaminophen ([place] 5/325) 1 tab PO Q4H PRN PRN Reason: Moderate Pain (4-6) Last Admin: 08/14/17 16:20 Dose: 1 tab Al Hydroxide/Mg Hydroxide (Maalox) 30 ml PO Q6H PRN PRN Reason: Heartburn or Indigestion Aspirin (Aspirin Chewable) 81 mg PO DAILY [facility] Last Admin: 08/17/17 09:08 Dose: 81 mg Atorvastatin Calcium (Lipitor) 40 mg PO HS [facility] Last Admin: 08/16/17 21:16 Dose: 40 mg Carvedilol (Coreg) 12.5 mg PO BID [facility] Last Admin: 08/17/17 09:08 Dose: 12.5 mg Dextrose/Water (Dextrose 50%) 25 gm SLOW IVP PRN PRN PRN Reason: Hypoglycemia Enoxaparin Sodium (Lovenox) 80 mg SC NOW [facility] Stop: 08/17/17 13:15 Famotidine (Pepcid) 20 mg PO BID [facility] Last Admin: 08/17/17 09:08 Dose: 20 mg Glimepiride (Amaryl) 4 mg PO BID[facility] Last Admin: 08/17/17 09:08 Dose: 4 mg Glucagon (Glucagon) 1 mg IM PRN PRN PRN Reason: Hypoglycemia Dextrose/Water (D5w) 1,000 mls @ 0 mls/hr IV .Q0M PRN; As Directed PRN Reason: Hypoglycemia Insulin Glargine 60 units/ (Miscellaneous Medication) 0.6 mls @ 0 mls/hr SC QAM [facility] Last Admin: 08/17/17 09:07 Dose: 0.6 mls Insulin Human Lispro (Humalog) 0 units SC .MODERATE SLIDING SC PRN PRN Reason: Moderate Correctional Scale Last Admin: 08/16/17 16:55 Dose: 2 unit Insulin Human Regular (Humulin R) 0 units SC .BEDTIME SLIDING SC PRN PRN Reason: Bedtime Correctional Scale Last Admin: 08/15/17 11:51 Dose: 2 unit Iron/Minerals/Multivitamins (Theragran M) 1 tab PO DAILY [facility] Last Admin: 08/17/17 09:08 Dose: 1 tab Lisinopril (Zestril) 2.5 mg PO BID [facility] Last Admin: 08/17/17 09:09 Dose: 2.5 mg Loperamide HCl (Imodium) 2 mg PO PRN PRN PRN Reason: Diarrhea/Loose Stools Magnesium Hydroxide (Milk Of Magnesium) 30 ml PO DAILYPRN PRN PRN Reason: Constipation Ondansetron HCl (Zofran Odt) 4 mg PO Q6H PRN PRN Reason: Nausea/Vomiting Ondansetron HCl (Zofran) 4 mg IVP Q6H PRN PRN Reason: Nausea/Vomiting Senna (Senokot) 2 tab PO HSPRN PRN PRN Reason: Constipation Last Admin: 08/15/17 21:56 Dose: 2 tab Ticagrelor (Brilinta) 90 mg PO BID [facility] Last Admin: 08/17/17 09:08 Dose: 90 mg Zolpidem Tartrate (Ambien) 5 mg PO HSPRN PRN PRN Reason: Insomnia
[2017-08-17] MEDS ORDERED: Enoxaparin Sodium 80 MG/0.8 ML SYRINGE SC SCH (11:15)
--- NOTE | 2017-08-17 13:17 | CON ---
DATE OF SERVICE: 08/17/2017 SUBJECTIVE: Mr. Stockton is doing well. No chest pain or pressure noted. PHYSICAL EXAMINATION: VITAL SIGNS: Currently, blood pressure 105/71, pulse 85, temperature 98.7. LUNGS: Clear to auscultation. HEART: Regular rate and rhythm. ABDOMEN: Soft, nontender, nondistended. EXTREMITIES: No edema. IMAGING: Echo Doppler shows LVEF 30%-35%, cannot completely exclude apical thrombus. Visualization is poor. IMPRESSION: 1. Acute myocardial infarction. 2. Status post stent placement of the LAD. 3. Stenosis present in the right coronary artery. RECOMMENDATIONS: Given the poor quality echo and concern for apical thrombus with akinesis noted in the apex and anterior wall, we recommend a CECILE. I discussed the procedure in full detail with Mr. Juan David henry. The risks include but are not limited to damage to teeth, mouth, back of throat or damage to the esophagus requiring emergency surgery as well as reaction to medication. All questions were answered . He had breakfast at 9:30. We will try and proceed with CECILE at 03:00. If negative, it would be ok ay from my standpoint to discharge home this afternoon.
[2017-08-17] MEDS: Atorvastatin Calcium 40 MG TAB PO SCH (20:53)
[2017-08-17] MEDS: Insulin Regular 300 UNITS/3 ML VIAL SC PRN (22:36)
[2017-08-18] MEDS ORDERED: Ketamine 50 MG/ML VIAL ONE (07:22)
[2017-08-18] MEDS ORDERED: Sodium Chloride 0.9% 10 ML ONE (07:51)
--- NOTE | 2017-08-18 09:31 | OP ---
PREPROCEDURE DIAGNOSIS: Questionable apical thrombus. POSTPROCEDURE DIAGNOSES: No significant thrombus. PROCEDURE PERFORMED: CECILE. DESCRIPTION OF PROCEDURE: Patient was consented for the procedure. Conscious sedation performed wit h propofol. Anesthesia was present. The probe passed easily into the esophagus. FINDINGS: [place] well visualized in the 0 degree, 45 degree, 90 degree and 135 degree angle. No activ e thrombus present within the apical region. IMPRESSION: No apical thrombus.
[2017-08-18] MEDS: Lisinopril 5 MG TAB PO SCH (09:39)
[2017-08-18] MEDS: TICAGRELOR 90 MG TABLET PO SCH (09:39)
[2017-08-18] MEDS: Insulin Glargine 60 UNITS in Pre-Filled Syringe 1 EACH SC SCH (09:39)
[2017-08-18] MEDS: Famotidine 20 MG TAB PO SCH (09:39)
[2017-08-18] MEDS: Carvedilol 6.25 MG TAB PO SCH (09:40)
[2017-08-18] MEDS: Glimepiride 4 MG TAB PO SCH (09:40)
[2017-08-18] MEDS: Multivitamin W/ Minerals 1 TAB PO SCH (09:40)
--- NOTE | 2017-08-18 10:09 | DIS ---
DATE OF ADMISSION: 08/14/2017 DATE OF DISCHARGE: 08/18/2017 DISCHARGE DIAGNOSIS: Acute myocardial infarction. PROCEDURES: 1. CECILE: 2. Successful stent placement to the LAD. HOSPITAL COURSE: Mr. Stockton is a very pleasant 51-year-old gentleman who recently presented with acute onset chest pain. He was seen and evaluated by Dr. Romana Paz. He was found to have complete occ lusion of the LAD in addition to a stenosis of the right coronary artery. He underwent stent placeme nt x2 to the LAD with AMARA 3 flow present. He was placed in the ICU and monitored overnight. He was then transferred to telemetry monitoring. He has been well on telemetry monitoring. His follow up echo did reveal an LVEF of 30%-35%. The ech o was of poor quality. There was concern for apical thrombus. He underwent CECILE on 08/18/2017 that d id not reveal apical thrombus. Dr. Paz to address his right coronary artery as an outpatient. DISCHARGE MEDICATIONS: Atorvastatin 40 at bedtime, carvedilol 12.5 b.i.d., Pepcid 20 daily, lisinopr il 2.5 daily, insulin as prescribed, Brilinta 90 mg b.i.d., aspirin 81 q.a.m. FOLLOWUP: Follow up with Dr. Paz in 1-2 weeks. Successful placement of LifeVest. CONDITION AT DISCHARGE: Stable.
--- NOTE | 2017-08-18 10:15 | PDOC.PN ---
- Subjective Encounter Start Date: 08/18/17 Encounter Start Time: 08:20 Patient seen and examined for cad. No new complaints. No overnight events - Objective Resuscitation Status: Resuscitation Status FULL:Full Resuscitation MAR Reviewed: Yes Vital Signs & Weight: Vital Signs (12 hours) Temp Pulse Resp BP Pulse Ox 08/18/17 08:55 98 F 78 16 114/73 98 08/18/17 07:30 98.7 F 80 16 113/77 98 08/18/17 03:35 98.3 F 82 20 110/63 96 08/17/17 23:27 98.3 F 88 17 110/71 96 Weight Weight 198 lb 1.6 oz Most Recent Monitor Data Heart Rate from ECG 92 NIBP 101/66 NIBP BP-Mean 72 Respiration from ECG 23 SpO2 97 I&O: 08/17/17 08/18/17 08/19/17 06:59 06:59 06:59 Intake Total 1200 816 480 Output Total 605 970 Balance 595 -154 480 Result Diagrams: 08/15/17 04:32 08/15/17 04:32 Additional Labs: Accuchecks 08/18/17 08/17/17 08/17/17 05:49 20:42 17:00 POC Glucose 121 H 220 H 125 H 08/17/17 11:00 POC Glucose 224 H Radiology Reviewed by me: Yes (CECILE negative for clot) EKG Reviewed by me: Yes (nsr) Phys Exam - Physical Examination Constitutional: NAD HEENT: PERRLA, moist MMs, sclera anicteric Neck: no JVD, supple Respiratory: no wheezing, no rales, no rhonchi Cardiovascular: RRR, no significant murmur, no rub Gastrointestinal: soft, non-tender, no distention, positive bowel sounds Musculoskeletal: no edema, pulses present Neurological: non-focal, normal sensation, moves all 4 limbs Lymphatic: no nodes Psychiatric: normal affect, A&O x 3 Skin: no rash, normal turgor Dx/Plan (1) Acute myocardial infarction Code(s): I21.9 - ACUTE MYOCARDIAL INFARCTION, UNSPECIFIED Status: Acute (2) Status post insertion of drug-eluting stent into left anterior descending ( LAD) artery Code(s): Z95.5 - PRESENCE OF CORONARY ANGIOPLASTY IMPLANT AND GRAFT Status: Acute (3) 3-vessel coronary artery disease Status: Acute (4) Diabetes type 2, controlled Code(s): E11.9 - TYPE 2 DIABETES MELLITUS WITHOUT COMPLICATIONS Status: Chronic (5) Dyslipidemia Code(s): E78.5 - HYPERLIPIDEMIA, UNSPECIFIED Status: Chronic (6) Hypertension Code(s): I10 - ESSENTIAL (PRIMARY) HYPERTENSION Status: Chronic (7) Obesity Code(s): E66.9 - OBESITY, UNSPECIFIED Status: Chronic Qualifiers: Obesity type: due to excess calories Body mass index: BMI 30.0-30.9 - Plan cont current plan of care, plan discussed w/ family * medication reviewed as below * symptomatic treatment * see discharge lakisha. Review of Systems - Review of Systems ENT: negative: Ear Pain, Ear Discharge, Nose Pain, Nose Discharge, Nose Congestion, Mouth Pain, Mouth Swelling, Throat Pain, Throat Swelling, Other Respiratory: negative: Cough, Dry, Shortness of Breath, Hemoptysis, SOB with Excertion, Pleuritic Pain, Sputum, Wheezing Cardiovascular: negative: chest pain, palpitations, orthopnea, paroxysmal nocturnal dyspnea, edema, light headedness, other Gastrointestinal: negative: Nausea, Vomiting, Abdominal Pain, Diarrhea, Constipation, Melena, Hematochezia, Other Genitourinary: negative: Dysuria, Frequency, Incontinence, Hematuria, Retention , Other Musculoskeletal: negative: Neck Pain, Shoulder Pain, Arm Pain, Back Pain, Hand Pain, Leg Pain, Foot Pain, Other Skin: negative: Rash, Lesions, Butch, Bruising, Other - Medications/Allergies Allergies/Adverse Reactions: Allergies Allergy/AdvReac Type Severity Reaction Status Date / Time No Known Drug Allergies Allergy Verified 08/14/17 18:57 Medications: Current Medications Acetaminophen (Tylenol) 650 mg PO Q4H PRN PRN Reason: Headache/Fever or Pain Last Admin: 08/16/17 07:55 Dose: 650 mg Hydrocodone Bitart/Acetaminophen ([place] 5/325) 1 tab PO Q4H PRN PRN Reason: Moderate Pain (4-6) Last Admin: 08/14/17 16:20 Dose: 1 tab Al Hydroxide/Mg Hydroxide (Maalox) 30 ml PO Q6H PRN PRN Reason: Heartburn or Indigestion Aspirin (Aspirin Chewable) 81 mg PO DAILY [facility] Last Admin: 08/18/17 09:39 Dose: 81 mg Atorvastatin Calcium (Lipitor) 40 mg PO HS [facility] Last Admin: 08/17/17 20:53 Dose: 40 mg Carvedilol (Coreg) 12.5 mg PO BID [facility] Last Admin: 08/18/17 09:40 Dose: 12.5 mg Dextrose/Water (Dextrose 50%) 25 gm SLOW IVP PRN PRN PRN Reason: Hypoglycemia Famotidine (Pepcid) 20 mg PO BID [facility] Last Admin: 08/18/17 09:39 Dose: 20 mg Glimepiride (Amaryl) 4 mg PO BID-[facility] Last Admin: 08/18/17 09:40 Dose: 4 mg Glucagon (Glucagon) 1 mg IM PRN PRN PRN Reason: Hypoglycemia Dextrose/Water (D5w) 1,000 mls @ 0 mls/hr IV .Q0M PRN; As Directed PRN Reason: Hypoglycemia Insulin Glargine 60 units/ (Miscellaneous Medication) 0.6 mls @ 0 mls/hr SC QAM [facility] Last Admin: 08/18/17 09:39 Dose: 0.6 mls Insulin Human Lispro (Humalog) 0 units SC .MODERATE SLIDING SC PRN PRN Reason: Moderate Correctional Scale Last Admin: 08/16/17 16:55 Dose: 2 unit Insulin Human Regular (Humulin R) 0 units SC .BEDTIME SLIDING SC PRN PRN Reason: Bedtime Correctional Scale Last Admin: 08/17/17 22:36 Dose: 2 unit Iron/Minerals/Multivitamins (Theragran M) 1 tab PO DAILY [facility] Last Admin: 08/18/17 09:40 Dose: 1 tab Lisinopril (Zestril) 2.5 mg PO BID [facility] Last Admin: 08/18/17 09:39 Dose: 2.5 mg Loperamide HCl (Imodium) 2 mg PO PRN PRN PRN Reason: Diarrhea/Loose Stools Magnesium Hydroxide (Milk Of Magnesium) 30 ml PO DAILYPRN PRN PRN Reason: Constipation Ondansetron HCl (Zofran Odt) 4 mg PO Q6H PRN PRN Reason: Nausea/Vomiting Ondansetron HCl (Zofran) 4 mg IVP Q6H PRN PRN Reason: Nausea/Vomiting Senna (Senokot) 2 tab PO HSPRN PRN PRN Reason: Constipation Last Admin: 08/15/17 21:56 Dose: 2 tab Ticagrelor (Brilinta) 90 mg PO BID [facility] Last Admin: 08/18/17 09:39 Dose: 90 mg Zolpidem Tartrate (Ambien) 5 mg PO HSPRN PRN PRN Reason: Insomnia
[2017-08-18 11:31] VITALS: BP 111/72; TEMP 98.2
--- NOTE | 2017-08-18 11:36 | DIS ---
DATE OF ADMISSION: 08/14/2017. DATE OF DISCHARGE: 08/18/2017. DISCHARGE DISPOSITION: Home. PRIMARY DISCHARGE DIAGNOSES: 1. Acute anterior wall myocardial infarction. 2. Status post cardiac catheterization and found with 3-vessl coronary artery disease. 3. Status post drug-eluting stent to left anterior descending. 4. Status post transesophageal echocardiography and ruled out apical thrombus. 5. Ischemic cardiomyopathy. SECONDARY DISCHARGE DIAGNOSES: Diabetes type 2, insulin requiring; dyslipidemia; hypertension; obesi ty with body mass index 32. PRIMARY PROCEDURE/OPERATION: Cardiac catheterization and drug-eluting stent placement by Dr. Paz in left anterior descending, transesophageal echocardiogram performed by Dr. Lima. RADIOLOGICAL INVESTIGATION: Chest x-ray normal. Echocardiography showed EF 30-35%, hypokinetic ante rior anteroseptal wall. Transesophageal echocardiography negative for any apical thrombus. SIGNIFICANT LABORATORY DATA: WBC 10.2, hemoglobin 13.8, platelet 280. INR 1.0. Sodium 135, creatin ine 0.79. Troponin 77.1. Hemoglobin A1c 12.9, LDL 121, HDL 42, cholesterol 196, triglyceride 165, T SH 1.78. Urinalysis normal. DISCHARGE MEDICATIONS: Ecotrin 81 mg p.o. daily, Brilinta 90 mg p.o. b.i.d., Lipitor 40 mg p.o. at b edtime, Coreg 12.5 mg p.o. b.i.d., lisinopril 2.5 mg p.o. b.i.d., Lantus 60 units subcu daily, metfor min 1000 mg p.o. b.i.d., multivitamin 1 tablet p.o. daily, glimepiride 4 mg p.o. b.i.d. CONTRAINDICATIONS: None. CODE STATUS: FULL CODE. INPATIENT CONSULTANTS: Dr. Paz was admitted for acute myocardial infarction. Sound team was josé luis ging medical problems. TEST RESULTS PENDING ON DISCHARGE: None. ALLERGIES: No known drug allergy. DISCHARGE PLAN: Post hospital, the patient will follow up with Dr. Paz in 2 weeks. The patient w ill follow up with primary care physician in 1 week. HOSPITAL COURSE: A 51-year-old male who was admitted by Dr. Paz for acute myocardial infarction. The patient had acute chest pain around 7:30. He was feeling acute exertion with generalized weakne ss and subsequently, he started having chest pain which was radiating to back, associated with diapho resis and nausea. He came to ER and subsequently first EKG and first time routine blood test was nor mal, but second EKG showed ST elevation myocardial infarction. He was immediately taken for cardiac catheterization. The patient was found with 3-vessel coronary artery disease, but Dr. Paz did a d rug-eluting stent in proximal and mid left anterior descending. He had EF 25% based on a cardiac cat heterization. Subsequently, a repeat echo showed EF 30-35%. He was suspected for apical thrombus an d that is why he underwent transesophageal echocardiography that was negative for any apical thrombos is. He was getting cardiac rehabilitation. Above-mentioned medication was adjusted. All new medica tion prescription sent to his pharmacy. He will follow up with Dr. Paz and then they will decide whether a stent in RCA and LCX is needed versus CABG needed, that decision will be made by Cardiology upon followup visit. The patient is seen and examined at bedside today. The patient is cleared for discharge by Cardiolog y. Please see my progress note from today for further detail.
== END 2017-08-18 11:58 | disposition home or self-care (01) | DRG 247 ==
LOC: ERS 09:13 → CCL 10:10 → CCU 11:46 → 2NO 08-15 20:33
PROVIDERS: ADMIT Internal Medicine Cardiovascular Disease; ATTEND Internal Medicine Cardiovascular Disease
PROC: 027035Z Dilation of Coronary Artery, One Artery with Two Drug-eluting Intraluminal Devices, Percutaneous Approach (ICD-10-PCS; principal; 2017-08-14)
PROC: 4A023N7 Measurement of Cardiac Sampling and Pressure, Left Heart, Percutaneous Approach (ICD-10-PCS; 2017-08-14)
PROC: B2111ZZ Fluoroscopy of Multiple Coronary Arteries using Low Osmolar Contrast (ICD-10-PCS; 2017-08-14)
PROC: B24BZZ4 Ultrasonography of Heart with Aorta, Transesophageal (ICD-10-PCS; 2017-08-18)
DX: I21.09 ST elevation (STEMI) myocardial infarction involving other coronary artery of anterior wall (principal); F17.220 Nicotine dependence, chewing tobacco, uncomplicated; E11.9 Type 2 diabetes mellitus without complications; Z79.4 Long term (current) use of insulin; I10 Essential (primary) hypertension; E78.5 Hyperlipidemia, unspecified; I25.5 Ischemic cardiomyopathy; N40.0 Benign prostatic hyperplasia without lower urinary tract symptoms; I25.10 Atherosclerotic heart disease of native coronary artery without angina pectoris; E66.9 Obesity, unspecified; Z68.32 Body mass index [BMI] 32.0-32.9, adult
CPT/HCPCS: 36415; 36416; 71045; 76942; 80053; 80061; 81001; 82550; 82553; 83036; 84443; 84484; 85025; 85610; 85730; 90471; 90732; 92928; 93005; 93010; 93306; 93312; 93458; 93798; 96374; 99152; 99153; A4216; C1769; C1874; C1887; C9600; G0009; J1644; J1650; J1815; J2001; J2250; J3010; J3246

== ENCOUNTER 2017-09-26 15:43 | Outpatient (CLI) | payer OTHER ==
[2017-09-26 16:27] LABS: Hemoglobin 13.1 g/dL (14.0-18.0); Mean Corpuscular HGB CONC 32.6 g/dL (32.0-36.0); Mean Corpuscular Hemoglobin 28.8 pg (27.0-31.0); Mean Corpuscular Volume 88.3 fL (78.0-98.0); Mean Platelet Volume 7.2 fL (7.4-10.4); Platelet Count 329 thou/uL (130-400); RBC Distribution Width 13.3 % (11.5-14.5); Red Blood Cell (RBC) Count 4.57 mill/uL (4.70-6.10); White Blood Cell (WBC) Count 9.5 thou/uL (4.8-10.8)
[2017-09-26 16:33] LABS: INR-International Normal Ratio 1.1; PTT 34.3 SEC (22.9-36.1); Prothrombin Time 14.1 SEC (12.0-14.7)
[2017-09-26 16:52] LABS: ALT (SGPT) 19 U/L (8-55); AST (SGOT) 20 U/L (5-34); Albumin 3.9 g/dL (3.5-5.0); Alkaline Phosphatase 79 U/L (40-150); Anion Gap 13 mmol/L (10-20); BUN (Urea Nitrogen) 13 mg/dL (8.4-25.7); Bilirubin, Total 0.8 mg/dL (0.2-1.2); Calc. Creatinine Clearance 0 mL/min (70-130); Calcium 9.5 mg/dL (7.8-10.44); Carbon Dioxide 22 mmol/L (22-29); Chloride 106 mmol/L (98-107); Estimated GFR-MDRD Greater than 90; Globulin 3.9 g/dL (2.4-3.5); Glucose 142 mg/dL (70-105); Potassium 4.3 mmol/L (3.5-5.1); Protein, Total 7.8 g/dL (6.0-8.3); Sodium 137 mmol/L (136-145)
== END 2017-09-26 15:44 | disposition home or self-care (01) ==
LOC: LABBT 15:43
PROVIDERS: ATTEND Internal Medicine Cardiovascular Disease
DX: Z01.812 Encounter for preprocedural laboratory examination (principal); I25.10 Atherosclerotic heart disease of native coronary artery without angina pectoris
CPT/HCPCS: 80053; 85027; 85610; 85730

== ENCOUNTER → 2017-10-03 | Day surgery (SDC) | payer OTHER ==
[2017-09-26 15:52] VITALS: BMI 30.9
[~2017-10-03] MED LIST: Atropine Sulfate 1 mg/1 ml Vial ONE; Atropine Sulfate 1 mg/10 ml Syringe ONE; Clopidogrel Bisulfate 300 MG TAB ONE; Diazepam 5 MG TAB ONE; Fentanyl 100 MCG/2 ML VIAL ONE; Heparin 10,000 UNITS/1 ML VIAL ONE; Iopamidol 370 76% 100 ML VIAL ONE; Lidocaine 1% (PF) 30 ML VIAL ONE; Midazolam HCl 2 mg/2 ml Vial ONE; Nitroglycerin 100MG/250ML BOT 0 ML ONE
--- NOTE | 2017-10-03 12:45 | CON ---
DATE OF CONSULTATION: 10/03/2017 HISTORY OF PRESENT ILLNESS: This is a 51-year-old gentleman who presented with an acute anterior jessica cardial infarction about 6 weeks ago. On 08/14/2017, he underwent acute stenting of his LAD with abo ut 70 mm stent. He was noted to have circumflex and right coronary disease at that time. He underwe nt repeat cardiac catheterization today and LAD stent is functioning well and his ejection fraction a ppears to be about 30%-35%. His cardiovascular risk factors at that time included poorly controlled diabetes mellitus with a hemoglobin A1c of 11, obesity, hypertension. Patient denies any history of hyperlipidemia. SOCIAL HISTORY: He is nonsmoker and with family, works at a convenience store. PAST SURGICAL HISTORY: Negative. MEDICATIONS: Include metformin 1000 b.i.d., glimepiride 4 mg daily, lisinopril 5 mg daily, Coreg 25 b.i.d., atorvastatin 40 a day, aspirin 81 a day, Brilinta 90 mg b.i.d. which has been changed to Plav ix once a day at this time. PHYSICAL EXAMINATION: GENERAL: Alert, cooperative gentleman in no distress. NECK: No carotid bruits. LUNGS: Clear to auscultation. CARDIAC: Regular rate and rhythm. No murmurs. ABDOMEN: Soft, nontender. EXTREMITIES: Palpable femoral, popliteal, and pedal pulses. Plan at this time is to stop the Brilinta, then begin Plavix for a couple of weeks and then proceed w ith coronary bypass grafting to the PDA, OM1, OM2 at that time. I have discussed the procedure, risk s, complications, and expectations with the patient and family and informed consent has been obtained .
== END ==
LOC: CCL 06:04
PROVIDERS: ATTEND Internal Medicine Cardiovascular Disease
DX: I25.10 Atherosclerotic heart disease of native coronary artery without angina pectoris (principal); E11.65 Type 2 diabetes mellitus with hyperglycemia; I10 Essential (primary) hypertension; E66.9 Obesity, unspecified; I25.5 Ischemic cardiomyopathy; E78.00 Pure hypercholesterolemia, unspecified; Z79.82 Long term (current) use of aspirin; Z79.4 Long term (current) use of insulin; Z79.899 Other long term (current) drug therapy; Z95.1 Presence of aortocoronary bypass graft; Z68.31 Body mass index [BMI] 31.0-31.9, adult
CPT/HCPCS: 76942; 93458; 99152; 99153; C1769; J0461; J1644; J2001; J2250; J3010

== ENCOUNTER 2018-10-12 21:47 | Emergency (ER) | payer OTHER ==
[2018-10-12] MEDS ORDERED: Morphine 4 MG/ML VIAL ONE (22:02)
== END 2018-10-12 22:24 | disposition home or self-care (01) ==
LOC: SCSER 21:47
DX: S39.012A Strain of muscle, fascia and tendon of lower back, initial encounter (principal); E11.9 Type 2 diabetes mellitus without complications; F17.220 Nicotine dependence, chewing tobacco, uncomplicated; Z79.84 Long term (current) use of oral hypoglycemic drugs; Z79.82 Long term (current) use of aspirin; Z79.899 Other long term (current) drug therapy; X50.1XXA Overexertion from prolonged static or awkward postures, initial encounter
CPT/HCPCS: 96372; 99283; J2270